=== PATIENT | male | born 1980 | race Caucasian/White ===

== ENCOUNTER 2021-02-15 15:45 | Emergency (ER) | payer OTHER ==
[2021-02-15 15:53] VITALS: RESP 18; TEMP 99.4
[2021-02-15 16:29] LABS: Basophils # (A) 0.1 k/uL (0-0.2); Basophils % (A) 1 %; Eosinophils # (A) 0.3 k/uL (0-0.7); Eosinophils % (A) 3 %; HCT 50.8 % (39.0-53.0); HGB 17.7 gm/dL (13.0-17.5); Lymphocytes # (A) 1.3 k/uL (1.0-4.8); Lymphocytes % (A) 14 %; MCHC 34.8 g/dL (31.0-37.0); Mean Platelet Volume 9.9; Monocytes # (A) 0.5 k/uL (0-1.0); Monocytes % (A) 6 %; Neutrophils # (A) 7.2 k/uL (1.3-7.7); Neutrophils % (A) 75 %; Platelet Count 163 k/uL (150-450); RBC 5.52 m/uL (4.30-5.90); RDW 13.4 % (11.5-15.5); WBC 9.5 k/uL (3.8-10.6)
[2021-02-15 16:37] LABS: ALT 19 U/L (4-49); AST 24 U/L (17-59); African American GFR (CKD) >90 (>60 ml/min/1.73 sqM); Albumin 3.6 g/dL (3.5-5.0); Alkaline Phosphatase 52 U/L (38-126); Anion Gap 6 mmol/L; Blood Urea Nitrogen 18 mg/dL (9-20); Calcium 8.8 mg/dL (8.4-10.2); Carbon Dioxide 22 mmol/L (22-30); Chloride 109 mmol/L (98-107); Glucose 129 mg/dL (74-99); Non-African American GFR(CKD) >90 (>60 ml/min/1.73 sqM); Sodium 137 mmol/L (137-145); Total Bilirubin 0.4 mg/dL (0.2-1.3); Total Protein 5.9 g/dL (6.3-8.2)
--- NOTE | 2021-02-15 17:18 | ED ---
General Adult HPI - General Chief complaint: Extremity Problem,Nontraumatic Stated complaint: cardiac concerns Time Seen by Provider: 02/15/21 15:55 Source: patient, EMS, RN notes reviewed Mode of arrival: EMS Limitations: no limitations - History of Present Illness Initial comments: Patient is a 40-year-old male that presents to the emergency department complaining of left arm numbing and tingling. He notes that while running plasma his arm felt cool during the return saline part of the donation. He notes that several hours later at home he started to have palpitations and felt like his heart was beating really fast. He denied any history of anxiety. He was otherwise a well-appearing 40-year-old male that denied any other complaints or issues while sitting up in bed. He notes that the numbness and tingling sensations left arm has subsided. He notes that the heart palpitations have subsided. He denied any chest pain shortness of breath headache nausea vomiting diarrhea constipation fever fatigue chills. - Related Data Home Medications Medication Instructions Recorded Confirmed Lansoprazole [Prevacid] 15 mg PO DAILY 02/15/21 02/15/21 Loratadine-Pseudoeph 10-240 mg 1 tab PO DAILY 02/15/21 02/15/21 [Claritin-D 24 Hour] Allergies Allergy/AdvReac Type Severity Reaction Status Date / Time azithromycin AdvReac Vomiting Verified 02/15/21 16:25 Review of Systems ROS Statement: Those systems with pertinent positive or pertinent negative responses have been documented in the HPI. ROS Other: All systems not noted in ROS Statement are negative. Past Medical History Past Medical History: No Reported History History of Any Multi-Drug Resistant Organisms: None Reported Past Surgical History: Adenoidectomy, Orthopedic Surgery, Tonsillectomy Past Psychological History: No Psychological Hx Reported, Unable to Obtain Smoking Status: Current every day smoker Past Alcohol Use History: Occasional Past Drug Use History: Marijuana General Exam Limitations: no limitations General appearance: alert, in no apparent distress Head exam: Present: atraumatic, normocephalic, normal inspection Eye exam: Present: normal appearance, PERRL, EOMI. Absent: scleral icterus, conjunctival injection, periorbital swelling Neck exam: Present: normal inspection Respiratory exam: Present: normal lung sounds bilaterally. Absent: respiratory distress, wheezes, rales, rhonchi, stridor Cardiovascular Exam: Present: regular rate, normal rhythm, normal heart sounds. Absent: systolic murmur, diastolic murmur, rubs, gallop, clicks Extremities exam: Present: normal inspection, full ROM, normal capillary refill. Absent: tenderness, pedal edema, joint swelling, calf tenderness Neurological exam: Present: alert, oriented X3 Psychiatric exam: Present: normal affect, normal mood Skin exam: Present: warm, dry, intact, normal color. Absent: rash Course Vital Signs 02/15/21 15:47 Temperature 99.4 F Pulse Rate 71 Respiratory 18 Rate Blood Pressure 130/101 O2 Sat by Pulse 96 Oximetry EKG Findings - EKG Comments: EKG Findings:: Ventricular rate 67 bpm, NC interval 144 ms, QRS duration 90 ms, QTC 393 ms, PRT axes 75/73/42. Normal sinus rhythm with sinus arrhythmia, normal ECG. Medical Decision Making - Medical Decision Making Patient is a 40-year-old male that presents to the emergency department complaining of palpitations and numbness into his left arm after donating plasma. Labs, EKG ordered. Labs unremarkable, troponin negative. EKG within normal limits. Patient most likely had an acute anxiety attack. Case discussed with Dr. Louie, patient can discharge home. - Lab Data Result diagrams: 02/15/21 16:20 02/15/21 16:20 Lab Results 02/15/21 02/15/21 02/15/21 Range/Units 16:20 16:20 16:20 WBC 9.5 (3.8-10.6) k/uL RBC 5.52 (4.30-5.90) m/uL Hgb 17.7 H (13.0-17.5) gm/dL Hct 50.8 (39.0-53.0) % MCV 92.0 (80.0-100.0) fL MCH 32.0 (25.0-35.0) pg MCHC 34.8 (31.0-37.0) g/dL RDW 13.4 (11.5-15.5) % Plt Count 163 (150-450) k/uL MPV 9.9 Neutrophils % 75 % Lymphocytes % 14 % Monocytes % 6 % Eosinophils % 3 % Basophils % 1 % Neutrophils # 7.2 (1.3-7.7) k/uL Lymphocytes # 1.3 (1.0-4.8) k/uL Monocytes # 0.5 (0-1.0) k/uL Eosinophils # 0.3 (0-0.7) k/uL Basophils # 0.1 (0-0.2) k/uL Sodium 137 (137-145) mmol/L Potassium 4.0 (3.5-5.1) mmol/L Chloride 109 H (98-107) mmol/L Carbon Dioxide 22 (22-30) mmol/L Anion Gap 6 mmol/L BUN 18 (9-20) mg/dL Creatinine 0.82 (0.66-1.25) mg/dL Est GFR (CKD-EPI)AfAm >90 (>60 ml/min/1.73 sqM) Est GFR (CKD-EPI)NonAf >90 (>60 ml/min/1.73 sqM) Glucose 129 H (74-99) mg/dL Calcium 8.8 (8.4-10.2) mg/dL Total Bilirubin 0.4 (0.2-1.3) mg/dL AST 24 (17-59) U/L ALT 19 (4-49) U/L Alkaline Phosphatase 52 (38-126) U/L Troponin I <0.012 (0.000-0.034) ng/mL Total Protein 5.9 L (6.3-8.2) g/dL Albumin 3.6 (3.5-5.0) g/dL - EKG Data -: EKG Interpreted by Tn EKG shows normal: sinus rhythm Rate: normal EKG Comments: Ventricular rate 67 bpm, NC interval 144 ms, QRS duration 90 ms, QTC 393 ms, PRT axes 75/73/42. Normal sinus rhythm with sinus arrhythmia, normal ECG. Disposition Clinical Impression: Anxiety attack, Palpitations Disposition: HOME SELF-CARE Condition: Stable Instructions (If sedation given, give patient instructions): Anxiety (ED) Additional Instructions: Please return to the Emergency Department if symptoms worsen or any other concerns. Is patient prescribed a controlled substance at d/c from ED?: No Referrals: None,Stated [Primary Care Provider] - 1-2 days Time of Disposition: 17:39
[2021-02-15 17:37] LABS: Appearance,Urine Clear (Clear); Bilirubin,Urine Negative (Negative); Blood,Urine Negative (Negative); Color,Urine Yellow; Glucose,Urine (UA) Negative (Negative); Ketones,Urine Negative (Negative); Leukocyte Esterase,Urine Negative (Negative); Nitrite,Urine Negative (Negative); Protein,Urine Negative (Negative); Specific Gravity,Urine 1.018 (1.001-1.035); Urobilinogen,Urine <2.0 mg/dL (<2.0)
[2021-02-15 18:43] VITALS: BP 129/82; PULSE 67
== END 2021-02-15 18:42 | disposition home or self-care (01) ==
LOC: EC 15:45
DX: R00.2 Palpitations (principal); F41.9 Anxiety disorder, unspecified; F17.200 Nicotine dependence, unspecified, uncomplicated; F12.90 Cannabis use, unspecified, uncomplicated; Z88.1 Allergy status to other antibiotic agents; Z90.89 Acquired absence of other organs
CPT/HCPCS: 36415; 80053; 81003; 84484; 85025; 93005; 99285

== ENCOUNTER → 2021-08-21 | Outpatient (CLI) | payer OTHER ==
--- NOTE | 2021-08-22 10:01 | ECHOF ---
Referral Reason:R00.2 Palpitations, Z82.49 MEASUREMENTS -------- HEIGHT: 180.3 cm WEIGHT: 94.3 kg BP: RVIDd: 2.2 cm (< 3.3) IVSd: 0.7 cm (0.6 - 1.1) LVIDd: 4.6 cm (3.9 - 5.3) LVPWd: 1.1 cm (0.6 - 1.1) IVSs: 1.5 cm LVIDs: 1.4 cm LVPWs: 1.5 cm Ao Diam: 3.2 cm (2.0 - 3.7) AV Cusp: 2.2 cm (1.5 - 2.6) LA Diam: 3.1 cm (2.7 - 3.8) MV EXCURSION: 13.991 mm (> 18.000) MV EF SLOPE: 124 mm/s (70 - 150) EPSS: 0.6 cm MV E Adrash: 0.80 m/s MV DecT: 344 ms MV A Adarsh: 0.54 m/s MV E/A Ratio: 1.48 RAP: 5.00 mmHg RVSP: 10.82 mmHg FINDINGS -------- This was a technically good study. The left ventricular size is normal. Left ventricular wall thickness is normal. Overall left vent ricular systolic function is normal with, an EF between 55 - 60 %. The right ventricle is normal in size. The left atrial size is normal. The right atrial size is normal. The aortic valve is trileaflet and appears structurally normal. The mitral valve is normal. Mild mitral regurgitation is present. The tricuspid valve appears structurally normal. Mild tricuspid regurgitation present. Right vent ricular systolic pressure is normal at < 35 mmHg. There is no pulmonic regurgitation present. The aortic root size is normal. Normal inferior vena cava with normal inspiratory collapse consistent with estimated right atrial pre ssure of 5 mmHg. There is no pericardial effusion. CONCLUSIONS -------- 1. The left ventricular size is normal. 2. Left ventricular wall thickness is normal. 3. Overall left ventricular systolic function is normal with, an EF between 55 - 60 %. 4. The right ventricle is normal in size. 5. The left atrial size is normal. 6. The right atrial size is normal. 7. Mild mitral regurgitation is present. 8. Mild tricuspid regurgitation present. 9. There is no pericardial effusion. [facility] ATTENDANT: Isa Martines RDCS
== END | disposition home or self-care (01) ==
LOC: RADECHMAIN 14:42
PROVIDERS: ATTEND Family Medicine
DX: I08.1 Rheumatic disorders of both mitral and tricuspid valves (principal); F17.200 Nicotine dependence, unspecified, uncomplicated; Z82.49 Family history of ischemic heart disease and other diseases of the circulatory system
CPT/HCPCS: 93306

== ENCOUNTER → 2024-05-27 | Outpatient (CLI) | payer OTHER ==
--- NOTE | 2024-05-27 18:21 | US ---
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 [facility] Shahzad Dickerson, , 05/27/2024 6:19 PM
== END | disposition home or self-care (01) ==
LOC: RADUSWWP 14:35
PROVIDERS: ATTEND Family Medicine
DX: D17.1 Benign lipomatous neoplasm of skin and subcutaneous tissue of trunk (principal); L72.3 Sebaceous cyst